=== PATIENT | male | born 2000 | race Caucasian/White ===

== ENCOUNTER 2023-05-22 08:01 | Emergency (ER) | payer SELFPAY | END 2023-05-22 09:45 | disposition home or self-care (01) | LOC: JD.ED 08:01 | DX: S02.2XXA Fracture of nasal bones, initial encounter for closed fracture (principal); S62.306A Unspecified fracture of fifth metacarpal bone, right hand, initial encounter for closed fracture; Z72.0 Tobacco use; W22.09XA Striking against other stationary object, initial encounter | CPT/HCPCS: 29125; 70160; 70160-26; 73130-26-RT; 73130-RT; 99283 ==